=== PATIENT | female | born 1970 | race Caucasian/White ===

== ENCOUNTER → 2024-01-06 10:53 | Outpatient (REF) | payer OTHER, SELFPAY | LOC: RAD 10:53 | PROVIDERS: ATTENDING PHYSICIAN Nurse Practitioner Family | DX: R10.9 Unspecified abdominal pain (principal) | CPT/HCPCS: 76770 ==

== ENCOUNTER → 2024-03-12 13:39 | Outpatient (REF) | payer OTHER, SELFPAY | LOC: RAD 13:39 | PROVIDERS: ATTENDING PHYSICIAN Nurse Practitioner Family | DX: M54.2 Cervicalgia (principal) | CPT/HCPCS: 76536 ==

== ENCOUNTER → 2024-03-20 09:56 | Outpatient (REF) | payer OTHER, SELFPAY | LOC: WDC 09:56 | PROVIDERS: ATTENDING PHYSICIAN Nurse Practitioner Family | DX: M79.621 Pain in right upper arm (principal); N63.11 Unspecified lump in the right breast, upper outer quadrant | CPT/HCPCS: 76642; 77063; 77067 ==

== ENCOUNTER → 2024-03-26 14:20 | Outpatient (REF) | payer OTHER, SELFPAY | LOC: RAD 14:20 | PROVIDERS: ATTENDING PHYSICIAN Nurse Practitioner Family | DX: R13.19 Other dysphagia (principal) | CPT/HCPCS: 70491; Q9967 ==

== ENCOUNTER → 2024-04-27 09:33 | Outpatient (REF) | payer OTHER, SELFPAY | LOC: RAD 09:33 | PROVIDERS: ATTENDING PHYSICIAN Otolaryngology; FAMILY PHYSICIAN Nurse Practitioner Family | DX: R22.1 Localized swelling, mass and lump, neck (principal); R13.12 Dysphagia, oropharyngeal phase | CPT/HCPCS: 74221 ==

== ENCOUNTER → 2024-05-09 12:35 | Outpatient (REF) | payer OTHER, SELFPAY ==
[2024-05-09 12:47] VITALS: BP 148/98; BP_SYST 99
== END ==
LOC: RADI 12:35
PROVIDERS: ATTENDING PHYSICIAN Otolaryngology; FAMILY PHYSICIAN Nurse Practitioner Family
DX: R22.1 Localized swelling, mass and lump, neck (principal)
CPT/HCPCS: 88173; 10005; 88342

== ENCOUNTER → 2024-05-30 09:30 | Outpatient (REF) | payer OTHER, SELFPAY ==
[2024-05-30 09:48] VITALS: BP 170/104; BP_SYST 99
== END ==
LOC: RADI 09:30
PROVIDERS: ATTENDING PHYSICIAN Otolaryngology; FAMILY PHYSICIAN Nurse Practitioner Family
DX: R22.1 Localized swelling, mass and lump, neck (principal)
CPT/HCPCS: 88172; 88173; 10005